=== PATIENT | female | born 2000 | race Caucasian/White ===

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

== ENCOUNTER 2020-09-15 23:43 | Emergency (ER) | payer SELFPAY ==
[2020-09-15] MEDS ORDERED: NALOXONE HCL INJ 1 MG/ML SYG ONE (23:47)
[2020-09-15] MEDS ORDERED: SODIUM CHLORIDE 0.9% (FLUSH) 10 ML SYG ONE (23:48)
[2020-09-15] MEDS ORDERED: NALOXONE HCL INJ 1 MG/ML SYG IV ONE (23:51)
[2020-09-15] MEDS ORDERED: SODIUM CHLORIDE 0.9% (FLUSH) 10 ML SYG IV PRN (23:51)
[2020-09-15] MEDS ORDERED: SODIUM CHLORIDE 0.9% 1000ML 1,000 ML IVS ONE (23:53)
--- NOTE | 2020-09-15 23:55 | ED.PDOC ---
History of Present Illness - General Time Seen by Provider: 09/15/20 23:51 Source: police, EMS - History of Present Illness Initial Comments: 20-year-old female with past medical history of seizure disorder, who is brought in by EMS for chief complaint of suspected drug overdose. The patient was pulled over while driving by police officers leaving a known narcotics house in the area. Initially during the stop the officer stated that the patient appe ared to be on a stimulant drug with hyperactivity and dilated pupils. He went to arrest her and she ingested an unknown substance. Within several minutes she was slurring her words and very slowed mentation and confused. EMS was called. Patient was reported to be somnolent and arousable only to vigorous stimuli. Vitals were noted to be stable. D stick 99. She was given Narcan 2 mg IV in route without any improvement. On arrival to the ED she was noted to have GCS of 7 with pinpoint bilateral pupils. She did localize to painful stimuli that had no verbal or eye response. Track aguila are noted on the right arm. Little other information is known at this time. Allergies/Adverse Reactions: Allergies NO KNOWN ALLERGY Allergy (Verified 07/17/15 11:01) Review of Systems - Review of Systems Unable to Obtain Due To: clinical condition Past Medical History (General) - Patient Medical History Hx Seizures: No Hx Asthma: Yes Hx Congestive Heart Failure: No Hx Diabetes: No - Vaccination History Hx Tetanus, Diphtheria Vaccination: - unknown Hx Influenza Vaccination: - unknown - Social History Hx Tobacco Use: No - Female History Patient : No Family Medical History - Family History Mother Family History: No Known Living Status: Still Living Physical Exam - Physical Exam General Appearance: Other - GCS 7, localizes to painful stimuli only, breathing spotaneously, NAD Eye Exam: bilateral abnormal EOM - pinpoint fixed pupils BL Ears, Nose, Throat: normal ENT inspection, other Neck: supple, normal inspection Respiratory: lungs clear, normal breath sounds, no respiratory distress, no accessory muscle use Cardiovascular/Chest: normal peripheral pulses, regular rate, rhythm, no edema, no gallop, no JVD, no murmur Peripheral Pulses: radial,right: 2+, radial,left: 2+ Gastrointestinal/Abdominal: non tender, soft, no organomegaly Back Exam: normal inspection Extremity: other - Localizes to painful stimulus all 4 extremities, MAEW Neurologic: other - GCS 7 on arrival ([id number]), arouses only to painful stimuli - localizes, breathing spontaneously, NAD Skin Exam: normal color, warm/dry Progress - Progress Progress: 09/16/20 00:30 Drug overdose -Narcan 6 mg IV total given without any improvement in mental status/GCS score. Thus patient emergently intubated shortly after arrival. -full overdose panel labs, 1 L NS bolus, mustafa catheter, tele monitoring -will need to transfer to [facility] for ICU in intubated, mechanically ventilated patient 09/16/20 00:40 -Just after intubation, pt had repetitive full body tonic-clonic activity which occurred for approx 8 minutes. Ativan 2 mg IV was given immediately without improvement. Seizure-like activity resolved with Propofol 150 mg IV. Zofran 8 mg IV and Rocuronium 50 mg IV also given as paralytic. Vitals remain stable. -Calling to find ICU bed at [facility] facility for drug overdose, respiratory failure, seizures. 09/16/20 00:48 -UDS is positive for amphetamines, benzos, cannabinoids, opioids. Tylenol <10, salicylates negative. -CBC largely unremarkable. Lactate 0.4, K 3.2, Mg 2.1, CPK 271. CMP otherwise unremarkable. Serum hcg negative. 09/16/20 01:11 -Spoke with pt's mother, Eliza, who is now in the ED lobby. Mother states pt moved out of the house 3 days ago because mother wanted her to get clean but she refused so she was kicked out of the house. She reports she has also been off of her regular medications for anxiety, depression, and bipolar disorder for the past 3 days - Prozac, Seroquel, and Celexa. Mother states she has hx of multiple drug abuse for a while now, frequently coming home high and intoxicated. Mother denies any hx of suicide attempt and pt has not verbalized any suicidal ideation to her. Mother reports she had hx of seizure disorder when she was younger but no reported seizures for several years and not on seizure medications. -Pt is noted to be negative for COVID-19. 09/16/20 02:02 -ABG ph 7.36, pCO2 41, pO2 140, base excess -1.6. Serum bicarb noted to be 25. -Spoke with Dr. Julius Denis at [facility] who accepts the patient for transfer to the ED there. Stable but serious/guarded condition. Ok to go via ground EMS. Jonh Krishnan MD Billing #[id number] 09/15/20 23:51 Sodium Chloride 0.9% (Flush) [Saline Flush Syringe] 10 ml IV PRN PRN 09/15/20 23:52 IV Care:Saline Lock per Protoc QSHIFT Telemetry Q4H EKG Assessment ONCE EKG STAT 09/15/20 23:53 Catheter:Mustafa QSHIFT 09/15/20 23:58 Arterial Blood Gas Stat 09/16/20 00:04 URINE CULTURE W/COLONY COUNT Stat 09/16/20 00:49 Sodium Chloride 0.9% 1000ML [Ns 1000 ml] 1,000 ml IVS ONCE 09/16/20 00:52 KCl 20Meq/D5ns [D5 NS W/ KCL 20 meq/Liter] 1,000 ml IVS .QD 09/16/20 01:19 cefTRIAXone SODIUM [Rocephin] 1 gm Sodium Chl 0.9% 50Ml Min-Bag+ [NS 50ml MINI-BAG+] 50 ml IVPB ONCE 09/16/20 23:52 EKG STAT Laboratory Results - last 24 hr 09/15/20 09/15/20 09/15/20 00:04 00:04 00:04 WBC 5.8 RBC 4.01 L Hgb 12.4 Hct 36.3 MCV 90.3 MCH 31.0 MCHC 34.3 RDW 12.8 Plt Count 219 MPV 10.3 Absolute Neuts (auto) 3.20 Absolute Lymphs (auto) 1.80 Absolute Monos (auto) 0.70 Absolute Eos (auto) 0.00 Absolute Basos (auto) 0.00 Neutrophils % 55.7 Lymphocytes % 31.4 Monocytes % 11.6 H Eosinophils % 0.7 L Basophils % 0.6 PT 10.9 INR 1.10 PTT (SP) 28.4 Sodium 138 Potassium 3.2 L Chloride 104 Carbon Dioxide 25 Anion Gap 12.2 BUN 13 Creatinine 0.74 BUN/Creatinine Ratio 17.6 POC Glucose Random Glucose 102 Serum Osmolality 276.0 Lactic Acid Calcium 8.4 Magnesium Total Bilirubin 0.5 AST 15 ALT 15 Alkaline Phosphatase 42 L Creatine Kinase 271 H* CK-MB (CK-2) 2.2 CK-MB (CK-2) % Not Reportable Troponin I < 0.02 Serum Total Protein 6.8 Albumin 4.0 Globulin 2.8 Albumin/Globulin Ratio 1.4 Serum HCG, Qual Urine Color Urine Appearance Urine pH Ur Specific [place] Urine Protein Urine Glucose (UA) Urine Ketones Urine Blood Urine Nitrite Urine Bilirubin Urine Urobilinogen Ur Leukocyte Esterase Urine RBC Urine WBC Ur Epithelial Cells Amorphous Sediment Urine Bacteria Salicylates Urine Opiates Screen Acetaminophen Urine Barbiturates Ur Phencyclidine Scrn U Amphetamin/Meth Scrn U Benzodiazepines Scrn U Cocaine Metab Screen U Cannabinoids Screen Ethyl Alcohol 09/15/20 09/15/20 09/15/20 00:04 00:04 00:04 WBC RBC Hgb Hct MCV MCH MCHC RDW Plt Count MPV Absolute Neuts (auto) Absolute Lymphs (auto) Absolute Monos (auto) Absolute Eos (auto) Absolute Basos (auto) Neutrophils % Lymphocytes % Monocytes % Eosinophils % Basophils % PT INR PTT (SP) Sodium Potassium Chloride Carbon Dioxide Anion Gap BUN Creatinine BUN/Creatinine Ratio POC Glucose Random Glucose Serum Osmolality Lactic Acid Calcium Magnesium Total Bilirubin AST ALT Alkaline Phosphatase Creatine Kinase CK-MB (CK-2) CK-MB (CK-2) % Troponin I Serum Total Protein Albumin Globulin Albumin/Globulin Ratio Serum HCG, Qual Negative Urine Color Urine Appearance Urine pH Ur Specific [place] Urine Protein Urine Glucose (UA) Urine Ketones Urine Blood Urine Nitrite Urine Bilirubin Urine Urobilinogen Ur Leukocyte Esterase Urine RBC Urine WBC Ur Epithelial Cells Amorphous Sediment Urine Bacteria Salicylates Urine Opiates Screen Negative Acetaminophen Urine Barbiturates Negative Ur Phencyclidine Scrn Negative U Amphetamin/Meth Scrn Positive H U Benzodiazepines Scrn Positive H U Cocaine Metab Screen Negative U Cannabinoids Screen Positive H Ethyl Alcohol < 5.10 09/15/20 09/15/20 09/16/20 00:04 00:04 00:04 WBC RBC Hgb Hct MCV MCH MCHC RDW Plt Count MPV Absolute Neuts (auto) Absolute Lymphs (auto) Absolute Monos (auto) Absolute Eos (auto) Absolute Basos (auto) Neutrophils % Lymphocytes % Monocytes % Eosinophils % Basophils % PT INR PTT (SP) Sodium Potassium Chloride Carbon Dioxide Anion Gap BUN Creatinine BUN/Creatinine Ratio POC Glucose 93 Random Glucose Serum Osmolality Lactic Acid 0.4 L Calcium Magnesium Total Bilirubin AST ALT Alkaline Phosphatase Creatine Kinase CK-MB (CK-2) CK-MB (CK-2) % Troponin I Serum Total Protein Albumin Globulin Albumin/Globulin Ratio Serum HCG, Qual Urine Color Urine Appearance Urine pH Ur Specific [place] Urine Protein Urine Glucose (UA) Urine Ketones Urine Blood Urine Nitrite Urine Bilirubin Urine Urobilinogen Ur Leukocyte Esterase Urine RBC Urine WBC Ur Epithelial Cells Amorphous Sediment Urine Bacteria Salicylates Urine Opiates Screen Acetaminophen < 10.0 L Urine Barbiturates Ur Phencyclidine Scrn U Amphetamin/Meth Scrn U Benzodiazepines Scrn U Cocaine Metab Screen U Cannabinoids Screen Ethyl Alcohol 09/16/20 09/16/20 09/16/20 00:04 00:04 01:02 WBC RBC Hgb Hct MCV MCH MCHC RDW Plt Count MPV Absolute Neuts (auto) Absolute Lymphs (auto) Absolute Monos (auto) Absolute Eos (auto) Absolute Basos (auto) Neutrophils % Lymphocytes % Monocytes % Eosinophils % Basophils % PT INR PTT (SP) Sodium Potassium Chloride Carbon Dioxide Anion Gap BUN Creatinine BUN/Creatinine Ratio POC Glucose 80 Random Glucose Serum Osmolality Lactic Acid Calcium Magnesium 2.1 Total Bilirubin AST ALT Alkaline Phosphatase Creatine Kinase CK-MB (CK-2) CK-MB (CK-2) % Troponin I Serum Total Protein Albumin Globulin Albumin/Globulin Ratio Serum HCG, Qual Urine Color Yellow Urine Appearance Cloudy Urine pH 7.0 Ur Specific [place] 1.025 Urine Protein Negative Urine Glucose (UA) Negative Urine Ketones Negative Urine Blood Negative Urine Nitrite Negative Urine Bilirubin Negative Urine Urobilinogen 1.0 Ur Leukocyte Esterase Small H Urine RBC 0 Urine WBC 10-20 H Ur Epithelial Cells 1-3 Amorphous Sediment 1+ Urine Bacteria Rare Salicylates Urine Opiates Screen Acetaminophen Urine Barbiturates Ur Phencyclidine Scrn U Amphetamin/Meth Scrn U Benzodiazepines Scrn U Cocaine Metab Screen U Cannabinoids Screen Ethyl Alcohol - EKG/XRAY/CT EKG: Sinus - NSR, HR 75, no ST elevations or q waves noted, axis normal, intervals normal, compared to 12/28/15 EKG appears largely unchanged. XRAY: chest - ET tube terminates approx 3 cm above andrei, OG tube in good position in fundus of stomach, no acute processes noted per my read Procedures - Intubation Time of Intubation: 00:25 Intubation Method: orotracheal - video laryngoscopy, tube inserted to a depth of 22 cm at the lips, balloon inflated Tube Size (cm): 7.5 Medications: Succinylcholine - 100 mg, Versed - 7.5 mg Breath Sounds after Intubation: equal Intubation Complications: oral-unsuccessful attempt - x1, brief desaturation to 84% SpO2, quickly corrected with bagging prior to 2nd attempt Post Intubation Xray: Yes - tip of ET tube in good position approx 3 cm above andrei Progress/Xray Impression: OG tube noted to terminate in fundus of stomach Departure - Departure Clinical Impression: Drug abuse, Seizure Acute respiratory failure Qualifiers: Respiratory failure complication: unspecified whether with hypoxia or hyp ercapnia Qualified Code(s): J96.00 - Acute respiratory failure, unspecified whether with hypoxia or hypercapnia Drug overdose, intentional Qualifiers: Encounter type: initial encounter Qualified Code(s): T50.902A - Poisoning by unspecified drugs, medicaments and biological substances, intentional self-harm, initial encounter UTI (urinary tract infection) Qualifiers: Urinary tract infection type: acute cystitis Hematuria presence: without hematuria Qualified Code(s): N30.00 - Acute cystitis without hematuria Time of Disposition: 02:02 Disposition: Transfer to Hospital Condition: Serious Referrals: Beth Agrawal NP [Primary Care Provider] - 1-2 Weeks Critical Care Note - Critical Care Note Total Time (mins): 60 Comments: Critical Care Time: Upon my evaluation, this patient had a high probability of life-threatening deterioration due to drug overdose, acute respiratory failure, status epilepticus, which required my direct attention, intervention, and management. I have provided 60 minutes of critical care time exclusive of separately billable procedures. My time included: direct patient care, review of labs and radiology, obtaining history from and counseling the family, discussion with consultants and other medical personnel, documentation, and monitoring for potential decompensation. Transfer to Outside Facility - Transfer Information Decision to Transfer Date: 09/16/20 Decision to Transfer Time: 02:01 Reason for Transfer: ICU Accepting Provider:: Dr. Julius Denis Accepting Facility: [facility]
[2020-09-16] MEDS: NALOXONE HCL INJ 1 MG/ML SYG IV ONE ×2 (00:03→03:25)
[2020-09-16] MEDS ORDERED: SUCCINYLCHOLINE CHLORIDE 200 MG/10 ML VIAL IV ONE (00:07)
[2020-09-16] MEDS ORDERED: MIDAZOLAM INJ 5 MG/5 ML VIAL IV ONE (00:07)
[2020-09-16] MEDS ORDERED: ETOMIDATE INJECTION 2 MG/ML 20ML VIAL IV ONE (00:07)
[2020-09-16] MEDS ORDERED: SUCCINYLCHOLINE CHLORIDE 200 MG/10 ML VIAL ONE (00:08)
[2020-09-16] MEDS ORDERED: ONDANSETRON INJ 4 MG/2 ML VIAL ONE (00:32)
[2020-09-16] MEDS ORDERED: PROPOFOL 200 MG/20 ML VIAL IV ONE ×3 (00:32→02:00)
[2020-09-16] MEDS ORDERED: ROCURONIUM BROMIDE 10 MG/ML VIAL ONE (00:34)
[2020-09-16] MEDS ORDERED: ROCURONIUM BROMIDE 10 MG/ML VIAL IV ONE ×2 (00:43→02:00)
[2020-09-16] MEDS ORDERED: ONDANSETRON INJ 4 MG/2 ML VIAL IV ONE (00:43)
[2020-09-16] MEDS ORDERED: SODIUM CHLORIDE 0.9% 1000ML 1,000 ML IVS ONE (00:49)
[2020-09-16] MEDS ORDERED: levETIRAcetam INJ 1,500 MG in SODIUM CHLORIDE 0.9% 100ML 100 ML IVPB ONE (00:50)
--- NOTE | 2020-09-16 00:50 | RAD ---
EXAM DESCRIPTION: Chest,1 View CLINICAL HISTORY: TUBE PLACEMENT COMPARISON: Chest x-ray 09/12/2019. TECHNIQUE: Single view of the chest. FINDINGS: Endotracheal tube tip approximately 1.8 cm above the andrei. Nonweighted enteric tube tip projecting over the left upper abdomen, likely in stomach. Low lung volumes. Cardiac silhouette is unchanged. No pneumothorax, focal consolidation, pleural effusion. IMPRESSION: 1. Nonweighted enteric tube tip projecting over the left upper abdomen, likely in the stomach. Endotracheal tube tip approximately 1.8 cm above the andrei. 2. No acute chest findings. Electronically signed by: Chandler Malhotra MD 09/16/2020 12:48 AM DAIRY GRAZER
[2020-09-16] MEDS ORDERED: KCL 20MEQ/D5NS 1,000 ML IVS ONE (00:52)
[2020-09-16] MEDS ORDERED: cefTRIAXone SODIUM 1 GM in SODIUM CHL 0.9% 50ML MIN-BAG+ 50 ML IVPB ONE (01:19)
[2020-09-16] MEDS ORDERED: THIAMINE HCL INJ 100 MG/ML VIAL IV ONE (01:20)
[2020-09-16 03:20] VITALS: BP 144/100; TEMP 97.3; O2SAT 100
== END 2020-09-16 02:55 | disposition short-term general hospital (02) ==
LOC: ER 23:43
DX: T50.901A Poisoning by unspecified drugs, medicaments and biological substances, accidental (unintentional), initial encounter (principal); J96.00 Acute respiratory failure, unspecified whether with hypoxia or hypercapnia; N30.00 Acute cystitis without hematuria; F15.10 Other stimulant abuse, uncomplicated; F12.10 Cannabis abuse, uncomplicated; F13.10 Sedative, hypnotic or anxiolytic abuse, uncomplicated; F11.10 Opioid abuse, uncomplicated; G40.909 Epilepsy, unspecified, not intractable, without status epilepticus; J45.909 Unspecified asthma, uncomplicated; F31.9 Bipolar disorder, unspecified; F41.9 Anxiety disorder, unspecified; Z20.828 Contact with and (suspected) exposure to other viral communicable diseases
CPT/HCPCS: 31500; 36415; 36416; 36600; 71045; 80053; 80307; 80320; 80329; 81001; 82550; 82553; 82803; 82805; 82948; 83605; 83735; 84484; 84703; 85025; 85610; 85730; 87086; 87635; 93005; 94002; 94770; A4216; J0330; J0696; J2060; J2310; J2405; J3411; J3490; J7030; J7050